=== PATIENT | female | born 1980 | race Caucasian/White ===

== ENCOUNTER 2016-06-29 14:52 | Emergency (ER) | payer MEDICAID ==
[2016-06-29] MEDS ORDERED: ZOFRAN ODT PO ONE (18:24)
--- NOTE | 2016-06-29 18:24 | Emergency Department Report ---
- General Chief Complaint: Upper Respiratory Infection Stated Complaint: NAUSEA/VOMITING/COUGH RUNNY NOSE Time Seen by Provider: 06/29/16 18:19 Source: patient Mode of arrival: Ambulatory Limitations: No Limitations - History of Present Illness Initial Comments: Patient presents with cough, runny nose times one week. Admits to vomiting today and states approximately 8 times. Admits to chills and sweating. Denies abdominal pain. MD Complaint: fever (subjective), cough -: Gradual Context: sick contacts Associated Symptoms: fever, chills, diaphoresis, nasal congestion, cough, nausea , vomiting - Related Data Previous Rx's Medication Instructions Recorded Last Taken Type Ondansetron [Zofran Odt] 4 mg PO BID #8 tab.rapdis 06/29/16 Unknown Rx Allergies Allergy/AdvReac Type Severity Reaction Status Date / Time No Known Allergies Allergy Unverified 06/29/16 16:09 ED Review of Systems ROS: Stated complaint: NAUSEA/VOMITING/COUGH RUNNY NOSE Other details as noted in HPI Constitutional: chills, diaphoresis Eyes: denies: eye pain, eye discharge, vision change ENT: congestion Respiratory: cough. denies: shortness of breath, wheezing Cardiovascular: denies: chest pain, palpitations Endocrine: no symptoms reported Gastrointestinal: nausea, vomiting. denies: abdominal pain, diarrhea Genitourinary: denies: urgency, dysuria, discharge Musculoskeletal: denies: back pain, joint swelling, arthralgia Skin: denies: rash, lesions Neurological: denies: headache, weakness, paresthesias ED Past Medical Hx - Past Medical History Hx Diabetes: Yes - Surgical History Additional Surgical History: R knee - Social History Smoking Status: Never Smoker Substance Use Type: None - Medications Home Medications: Home Medications Medication Instructions Recorded Confirmed Last Taken Type Ondansetron [Zofran Odt] 4 mg PO BID #8 tab.rapdis 06/29/16 Unknown Rx ED Physical Exam - General Limitations: No Limitations General appearance: alert, in no apparent distress - Head Head exam: Present: atraumatic, normocephalic - Eye Eye exam: Present: normal appearance, PERRL - ENT ENT exam: Present: mucous membranes moist, TM's normal bilaterally - Expanded ENT Exam Expanded Mouth exam: Present: normal external inspection Teeth exam: Present: normal inspection Throat exam: Positive: normal inspection - Neck Neck exam: Present: normal inspection, full ROM. Absent: tenderness, lymphadenopathy - Respiratory Respiratory exam: Present: normal lung sounds bilaterally. Absent: respiratory distress - Cardiovascular Cardiovascular Exam: Present: regular rate, normal rhythm. Absent: systolic murmur, diastolic murmur, rubs, gallop - GI/Abdominal GI/Abdominal exam: Present: soft, normal bowel sounds. Absent: tenderness - Neurological Exam Neurological exam: Present: alert, oriented X3 - Psychiatric Psychiatric exam: Present: normal affect, normal mood - Skin Skin exam: Present: warm, dry, intact, normal color. Absent: rash ED Course Vital Signs 06/29/16 16:06 Temperature 98.2 F Pulse Rate 102 H Respiratory 18 Rate Blood Pressure 131/89 O2 Sat by Pulse 98 Oximetry ED Medical Decision Making - Medical Decision Making She presents with nausea and vomiting 1 day. Cough congestion, rhinitis 1 week. Patient states she is currently [place] and there are a lot of sick contacts. - Differential Diagnosis flu, pneumonia, gastroenteritis Critical Care Time: No Critical care attestation.: If time is entered above; I have spent that time in minutes in the direct care of this critically ill patient, excluding procedure time. ED Disposition Clinical Impression: Gastroenteritis Disposition: DISCHARGED TO HOME OR SELFCARE Is pt being admited?: No Does the pt Need Aspirin: No Condition: Stable Instructions: Gastroenteritis (ED), Acute Nausea and Vomiting (ED) Additional Instructions: Follow-up with her primary care physician in 3-5 days. Drink small amounts frequently to decrease risk of dehydration. If symptoms worsen or vomiting uncontrolled with medication and follow-up in the ED. Prescriptions: Ondansetron [Zofran Odt] 4 mg PO BID #8 tab.rapdis Referrals: PRIMARY CARE, [Primary Care Provider] - 3-5 Days [facility] [Outside] - 3-5 Days
[2016-06-29 19:45] VITALS: BP 122/78
== END 2016-06-29 19:46 | disposition home or self-care (01) ==
LOC: ED 14:52
DX: K52.9 Noninfective gastroenteritis and colitis, unspecified (principal); E11.9 Type 2 diabetes mellitus without complications
CPT/HCPCS: 87400; 99282; Q0162